=== PATIENT | female | born 2000 ===

== ENCOUNTER 2019-11-13 15:42 | Emergency (ER) | payer SELFPAY ==
[~2019-11-13] VITALS: Ht 157.5 cm; Wt 68.2 kg
[2019-11-13 16:23] LABS: ALBUMIN 4.9 g/dL (3.5-5.0); POTASSIUM 3.9 mmol/L (3.5-5.1)
[2019-11-13 16:25] LABS: CALCIUM 9.8 mg/dL (8.3-10.5)
[2019-11-13 16:28] LABS: TOTAL BILIRUBIN 0.3 mg/dL (0.2-1.2)
[2019-11-13 16:36] LABS: EOS # 0.2 (0.04-0.40); EOS % 1.9 % (1.0-5.0); HEMATOCRIT 41.5 % (37.0-47.0); LYMPH# 2.2 (1.50-4.00); MEAN CELL VOLUME 85 fl (78-100); MEAN CORPUSCULAR HEMOGLOBIN 29 pg (27-31); MEAN CORPUSCULAR HGB CONC 34 g/dL (33-37); MEAN PLATELET VOLUME 9.2 fl (7.4-10.4); MONO # 0.8 (0.20-0.80); NEU # 5.6 (1.40-6.50); PLATELET COUNT 400 K/mm3 (130-400); RED CELL DISTRIBUTION WIDTH 12.9 % (11.5-14.5); WHITE BLOOD COUNT 8.8 K/mm3 (4.8-10.8)
[2019-11-13 17:06] LABS: URINE APPEARANCE CLEAR; URINE COLOR YELLOW; URINE PROTEIN(semi-quant) TRACE mg/dL (NEGATIVE)
[2019-11-13 17:07] LABS: URINE BILIRUBIN NEGATIVE (NEGATIVE); URINE BLOOD TRACE (NEGATIVE); URINE GLUCOSE NEGATIVE (NEGATIVE); URINE KETONE NEGATIVE (NEGATIVE); URINE LEUKOCYTE ESTERASE NEGATIVE (NEGATIVE); URINE MUCUS PRESENT (NOT PRESENT); URINE NITRATE NEGATIVE (NEGATIVE); URINE UROBILINOGEN NORMAL (NORMAL)
[2019-11-13] MEDS ORDERED: FLAGYL500 M1 PO (18:12)
[2019-11-13 18:23] LABS: CLUE CELLS PRESENT (Not Observd)
[2019-11-13 18:30] VITALS: BP 122/66
== END 2019-11-13 18:44 | disposition home or self-care (01) ==
LOC: ED 15:42
PROVIDERS: Physician Assistant
DX: N73.9 Female pelvic inflammatory disease, unspecified (principal)
CPT/HCPCS: J0696; Q0111